=== PATIENT | female | born 2005 | race Caucasian/White ===

== ENCOUNTER 2025-08-28 13:34 | Emergency (ER) | payer BC, SELFPAY ==
[2025-08-28 13:36] VITALS: BP 118/82
--- NOTE | 2025-08-28 16:43 | ED.GENMED ---
History of Present Illness
General
Chief Complaint: Abdominal Pain
Source: patient
Exam Limitations: none
Time Seen by Provider: 08/28/25 15:40
Nursing documentation reviewed up to this point in time: agreed with
History of Present Illness
History of Present Illness:
Patient to the emergency department with complaint of fever headache sore throat nausea and vomiting right lower quadrant abdominal pain. She states that she started with flulike symptoms on Tuesday but symptoms continue to worsen. She was seen by
her family doctor earlier today and advised to come to the emergency department because of her right lower quadrant abdominal pain. Last episode of vomiting was this morning she has not had anything to eat or drink. Denies any episodes of
diarrhea. she denies any shortness of breath or cough. Temp on exam is 99.8. She denies sick contacts. She is brought to the emergency department by her parents for evaluation
Past History
Past History
ED Past Medical History: None
ED Past Surgical History: None
Review of Systems
Review of Systems
Allergies reviewed?: Yes
All Other Systems: ROS reviewed and negative except as documented in HPI and ROS
Constitutional: Reports fever and fatigue
EENT: Reports sore throat
Respiratory: Reports no symptoms
Cardiac: Reports no symptoms
ABD/GI: Reports abdominal pain (Right lower quadrant), nausea, vomiting and anorexia
: Reports no symptoms
Musculoskeletal: Reports no symptoms
Skin: Reports no symptoms
Neurological: Reports no symptoms
Psychiatric: Reports no symptoms
Phy Exam
General Physical Exam
General Presentation: mild distress
General age: appears stated age
General Skin: warm and dry
General Habitus: normal
General Mental: alert
ENT Exam
ENT Exam: EOMI, TM's normal, pharynx normal, lymphnodes (Left anterior cervical lymph node enlarged and tender.) and swallowing well
Eye Exam
Eye Exam: PERRL, EOMI, conjunctiva normal and globe normal
Cardiovascular Exam
Cardiovascular Exam: regular rate/rhythm and no edema
Pulmonary Exam
Pulmonary Exam: lungs clear and no respiratory distress
Gastrointestinal Exam
Gastrointestinal Exam: normal bowel sounds, soft, no organomegaly, no pulsatile mass, non distended and no cva tenderness
Palpation: left upper quadrant: No tenderness, left lower quadrant: No tenderness, right upper quadrant: No tenderness and right lower quadrant: Mild tenderness
Musculoskeletal Exam
Musculoskeletal Exam: full ROM and neuro vasc intact
Skin Exam
Skin Exam: normal color, warm/dry and no rash
Psychiatric Exam
Psychiatric Exam: normal mood/affect
Sepsis
Sepsis Screening
Sepsis Assessment: Sepsis Ruled Out
Sepsis Screen
Sepsis Screen: Sepsis Ruled Out
Date: 08/28/25
Time: 22:33
Course
Orders/Labs/Results
Orders:
Orders
08/28/25 16:40
US Abdomen - Appendix Only Urgent
Comment:
Reason For Exam: RLQ pain
08/28/25 16:43
0.9% Sodium Chloride 1000 ml [Nss] 1,000 ml IV BOLUS
Ketorolac [Toradol] 30 mg IV NOW STA
Ondansetron Injectable [Zofran] 4 mg IV NOW STA
08/28/25 17:07
COVID-19 Antigen Urgent
Source: Nasal Swab
Complete Blood Count/With Diff Urgent
Comprehensive Metabolic Panel Urgent
Lipase Urgent
Monotest Urgent
Influenza A+B Rapid Molecular Urgent
MALACHI Source: Nasal Swab
Specimen Description:
08/28/25 17:09
Urinalysis Reflex To Culture Urgent
Date Specimen was Collected: 08/28/25
Time Specimen was Collected: 17:04
Urine Microscopic Reflex Cult Urgent
Urine Culture Urgent
MALACHI Source: U
Specimen Description:
Date Specimen was Collected: 08/28/25
Time Specimen was Collected: 17:04
Abnormal Lab Results
08/28/25 08/28/25
17:07 17:09
RBC 4.15 L 10^6/uL
(4.20-5.40)
Absolute Lymphs (auto) 0.7 L 10^3/uL
(1.2-3.4)
Neutrophils % 77.4 H %
(42.2-75.2)
Lymphocytes % 11.5 L %
(20.5-51.1)
Monocytes % 10.3 H %
(1.7-9.3)
Potassium 3.3 L mmol/L
(3.5-5.1)
BUN 6 L mg/dl
(7-17)
Urine Ketones 3+ A
(Negative)
Ur Occult Blood Reflex 2+ A
(Negative)
Leukocyte Esterase Rfl 1+ A
(Negative)
Urine RBC 3-6 A /HPF
(0-2)
Urine Bacteria (Reflex) Many A
(Negative)
Urine Albumin (Reflex) 2+ A
(Neg - Trace)
08/28/25 17:07
08/28/25 17:07
Vital Signs
Initial and Last Documented VS:
Initial Vital Signs
Temp Pulse Resp BP Pulse Ox
99.3 F 106 20 118/82 94
08/28/25 13:36 08/28/25 13:36 08/28/25 13:36 08/28/25 13:36 08/28/25 13:36
Last Documented Vital Signs
Temp Pulse Resp BP Pulse Ox
99.3 F 106 20 118/82 94
08/28/25 13:36 08/28/25 13:36 08/28/25 13:36 08/28/25 13:36 08/28/25 16:44
*Radiology
Radiology exam reviewed: radiology read reviewed
*Pulse Oximetry
SaO2: 94
Oxygen Mode of Delivery: Room air
Patient hypoxic: no
*Critical Care Note
Total Time (30-74mins, 75-104mins- exclusive of procedures): Not Applicable
Update Note
Update Note:
Patient to the emergency department for evaluation of fever body aches headache sore throat abdominal pain. Symptoms started on Tuesday and have continued to worsen. She was evaluated by her PCP today who was concerned that she may have
appendicitis and requested that she come to the emergency department for evaluation. On arrival to ED she is awake and alert nontoxic-appearing. Vital signs are stable temp 99.3. Pulse ox is 97% on room air. Heart rate is regular lungs are clear
to auscultation. Abdomen soft, bowel sounds present all 4 quadrants. Mild discomfort to deep palpation to right side of lower abdomen. Low clinical suspicion for appendicitis. Labs reviewed WBC is 5.9. She was sent for an ultrasound to evaluate
her appendix. Appendix was not visualized although no findings were identified, no distended tubular structure noted to suggest appendicitis. Her right ovary was visualized and there was normal color and spectral Doppler imaging. COVID is
negative Cook was negative influenza A positive. Discussed this finding with patient and her parents. Her symptoms are congruent with this finding. She will increase her fluid intake, continue ibuprofen or Tylenol for fever and bodyaches. And
follow-up with her family doctor. She was given instruction on signs symptoms to return to the emergency department and she is agreeable to this plan.
ED Attending Note
-
Portions of this chart may have been created with voice recognition software.� Occasional wrong word or��sound alike� substitutions may have occurred due to the inherent limitations of voice recognition software.
Discharge Plan
Departure
Patient Disposition: Home (Routine Discharge)
Date of Disposition: 08/28/25
Time of Disposition: 18:32
Patient with high blood pressure during this ER visit?: No
Condition: Good
Covid-19: Not Applicable
Discharge Problem:
Influenza A (H5N1)
Instructions: Flu in adults (DC)
Prescriptions:
No Action
No Current Medications
0
Referrals:
Natasha Benitez DO [Family Provider, Family Practice] - Follow up in 2-3 days
Activity Restrictions/Additional Instructions:
Increase your water intake. You may take tylenol or ibuprofen for fever and body aches. Follow up with your family doctor. Return to the emergency department immediately for any changes in/worsening of your symptoms
Interventions
Interventions:
*Risk Screen - Suicide Last Done: 08/28/25 13:36
*General Assessment Last Done: 08/28/25 17:03
*Neglect/Abuse Screening Last Done: 08/28/25 13:36
*ED- Fall Risk Assessment Last Done: 08/28/25 16:19
*ED COVID-19 Vaccine History Last Done: 08/28/25 16:19
*ED Influenza Vaccine History Last Done: 08/28/25 16:19
*Nursing Disposition Last Done: 08/28/25 18:40
AO-Ayxwcn-Qbjoqfxahu Assessment Last Done: 08/28/25 16:19
Discharge Date and Time
Discharge Date/Time: 08/28/25 18:40
Print Language: KOREAN
[2025-08-28 17:02] VITALS: BMI 21.8
[2025-08-28] MEDS: TORADOL 30 MG IV (17:11)
[2025-08-28] MEDS: NSS 1000 IV (17:12)
[2025-08-28] MEDS: ZOFRAN 4 MG IV (17:12)
[2025-08-28 17:38] LABS: Urine Character Clear (Clear)
[2025-08-28 17:39] LABS: COVID-19 Antigen Negative (Negative)
[2025-08-28 17:50] LABS: Urine Squamous Cell >30 /LPF (Few)
[2025-08-28 18:17] LABS: Hematocrit 37.8 % (37.0-47.0); Hemoglobin 12.8 g/dL (12.0-16.0); Mean Corp Hgb Conc. 33.9 g/dL (33.0-37.0); Mean Corpuscular Volume 91.1 fL (81.0-99.0); Nucleated Red Blood Cells % 0 %; Platelet Count 154 10^3/uL (130-400); Red Cell Dist. Width 11.6 % (11.5-14.5)
[2025-08-28 18:20] LABS: ALT (SGPT) 20 U/L (0-35); AST (SGOT) 24 U/L (14-36); Albumin 4.8 g/dl (3.5-5.0); Alkaline Phosphatase 68 U/L (38-126); Blood Urea Nitrogen 6 mg/dl (7-17); Calcium 9.6 mg/dl (8.4-10.2); Carbon Dioxide 23 mmol/L (22-30); Estimated Creatinine Clearance 117 ml/min; Glucose 89 mg/dl (70-99); Lipase 41 U/L (23-300); Total Protein 8.0 g/dl (6.3-8.2); eGFR > 60.00
[2025-08-28 18:24] LABS: Chloride 100 mmol/L (98-107); Potassium 3.3 mmol/L (3.5-5.1); Sodium 135 mmol/L (135-145)
== END 2025-08-28 18:40 | disposition home or self-care (01) ==
LOC: EMR 13:34
PROVIDERS: Nurse Practitioner; EMERGENCY PHYSICIAN Emergency Medicine; FAMILY PHYSICIAN Family Medicine
DX: J10.1 Influenza due to other identified influenza virus with other respiratory manifestations (principal); R11.2 Nausea with vomiting, unspecified; R10.31 Right lower quadrant pain; Z11.52 Encounter for screening for COVID-19
CPT/HCPCS: 96374; 96375; 96361; 99284; 76705; 80053; 81003; 81015; 83690; 85025; 86308; 87086; 87502; 87811